=== PATIENT | male | born 1945 | race Caucasian/White ===

== ENCOUNTER 2022-01-31 13:34 | Observation (INO) ==
[2022-01-31] MEDS ORDERED: SODIUM CHLORIDE 0.9% 1,000 ML IV STA (14:07)
[2022-01-31] MEDS ORDERED: ONDANSETRON 4 MG/2 ML VIAL IV STA (14:07)
[2022-01-31 14:32] LABS: Basophils % 0.1 % (0.0-0.8); Hematocrit 49.4 VOL% (42.0-52.0); Hemoglobin 16.2 GM/DL (14.0-18.0); Immature Granulocytes % 0.5 %; Immature Granulocytes Absolute 0.04 #; Lymphocytes # 1.1 10*3/uL (1.4-4.0); Lymphocytes % 12.9 % (21.2-54.2); Mean Corpuscular HGB Conc 32.8 GM/DL (32-36); Mean Corpuscular Volume 91.3 FL (87-102); Mean Platelet Volume 9.4 FL (9.6-12.0); Monocytes # 0.3 10*3/uL (0.11-0.8); Monocytes % 3.6 % (1.7-12.7); Neutrophils % 82.9 % (38.7-73.9); Platelet Count 300 T/CUMM (130-400); Red Blood Count 5.41 MC/CUMM (3.8-5.5); Red Cell Distribution Width 12.7 % (9.3-17.3); White Blood Count 8.7 T/CUMM (4-12)
[2022-01-31 14:48] LABS: Bilirubin,Urine Negative (Negative); Glucose,Urine (UA) Negative (Negative); Ketones,Urine Negative (Negative); Nitrite,Urine Negative (Negative); Protein,Urine Negative (Negative); RBC,Urine 1 /HPF (0-4); Urine Appearance Clear (Clear); Urine Color Yellow (Yellow); Urine Specific Gravity 1.015 (1.001-1.035)
[2022-01-31 14:49] LABS: Blood, Urine Negative (Negative); Urine Urobilinogen 0.2 eU/dL (<2.0)
[2022-01-31 15:06] LABS: Albumin 3.8 G/DL (3.4-5.0); Bilirubin,Total 0.7 MG/DL (0.20-1.00); Calcium 9.4 MG/DL (8.5-10.1); Osmolality,Calculated 269.5 MOS/KG (273-304); Potassium 4.2 MMOL/L (3.5-5.1); Total Protein 7.3 G/DL (6.4-8.2)
[2022-01-31] MEDS ORDERED: ONDANSETRON 4 MG/2 ML VIAL IV PRN (17:08)
[2022-01-31] MEDS ORDERED: hydrALAZINE 20 MG/1 ML VIAL IV PRN (17:08)
[2022-01-31] MEDS ORDERED: ACETAMINOPHEN 325 MG TABLET PO PRN (17:08)
[2022-01-31 19:39] LABS: Barbiturates Screen,Urine Negative (Negative); Benzodiazepines Screen,Urine Negative (Negative); Cannabinoid Screen,Urine Positive (Negative); Opiate Screen,Urine Positive (Negative); Phencyclidine Screen,Urine Negative (Negative)
[2022-01-31] MEDS: SODIUM CHLORIDE 0.9% 1,000 ML IV SCH (20:37)
[2022-01-31] MEDS: LATANOPROST 0.005% OPH SOLN 2.5 ML BOTTLE BOTH EYES SCH (20:37)
[2022-02-01] MEDS: SODIUM CHLORIDE 0.9% 1,000 ML IV SCH ×2 (03:35→13:32)
[2022-02-01 05:12] LABS: Basophils % 0.5 % (0.0-0.8); Eosinophils # 0.1 10*3/uL (0.0-0.87); Eosinophils % 0.6 % (0.00-10.9); Hematocrit 43.7 VOL% (42.0-52.0); Hemoglobin 14.4 GM/DL (14.0-18.0); Immature Granulocytes % 0.3 %; Immature Granulocytes Absolute 0.02 #; Lymphocytes # 2.6 10*3/uL (1.4-4.0); Lymphocytes % 32.7 % (21.2-54.2); Mean Corpuscular Volume 93.6 FL (87-102); Mean Platelet Volume 9.2 FL (9.6-12.0); Monocytes # 0.9 10*3/uL (0.11-0.8); Neutrophils % 54.9 % (38.7-73.9); Platelet Count 227 T/CUMM (130-400); Red Blood Count 4.67 MC/CUMM (3.8-5.5); Red Cell Distribution Width 12.6 % (9.3-17.3); White Blood Count 7.9 T/CUMM (4-12)
[2022-02-01 05:30] LABS: Risk Ratio 2.14; VLDL Cholesterol 15.4 MG/DL
[2022-02-01 08:47] LABS: Calcium 8.5 MG/DL (8.5-10.1); Osmolality,Calculated 277.7 MOS/KG (273-304); Potassium 4.1 MMOL/L (3.5-5.1)
[2022-02-01] MEDS ORDERED: predniSONE 20 MG TABLET PO SCH (09:00)
[2022-02-01] MEDS ORDERED: PANTOPRAZOLE 40 MG TABLET PO SCH (09:00)
[2022-02-01] MEDS: predniSONE 10 MG TABLET PO SCH (10:15)
[2022-02-01] MEDS: AMIODARONE 200 MG TABLET PO SCH (10:15)
[2022-02-01] MEDS: MESALAMINE 800 MG TABLET PO SCH ×3 (10:15→20:31)
[2022-02-01] MEDS: PANTOPRAZOLE 40 MG TABLET PO SCH ×2 (10:15→20:31)
[2022-02-01] MEDS: amLODIPine 10 MG TABLET PO SCH (10:15)
[2022-02-01] MEDS: VALSARTAN 160 MG TABLET PO SCH (10:15)
[2022-02-01] MEDS: ATORVASTATIN 20 MG TABLET PO SCH (10:15)
[2022-02-01] MEDS: TIMOLOL 0.5% OPH SOLN 5 ML BOTTLE BOTH EYES SCH (10:16)
[2022-02-01] MEDS: LATANOPROST 0.005% OPH SOLN 2.5 ML BOTTLE BOTH EYES SCH (20:31)
[2022-02-02] MEDS: SODIUM CHLORIDE 0.9% 1,000 ML IV SCH (01:14)
[2022-02-02] MEDS: MESALAMINE 800 MG TABLET PO SCH (08:35)
[2022-02-02] MEDS: amLODIPine 10 MG TABLET PO SCH (08:35)
[2022-02-02] MEDS: ATORVASTATIN 20 MG TABLET PO SCH (08:35)
[2022-02-02] MEDS: PANTOPRAZOLE 40 MG TABLET PO SCH (08:35)
[2022-02-02] MEDS: VALSARTAN 160 MG TABLET PO SCH (08:35)
[2022-02-02] MEDS: predniSONE 10 MG TABLET PO SCH (08:35)
[2022-02-02] MEDS: TIMOLOL 0.5% OPH SOLN 5 ML BOTTLE BOTH EYES SCH (08:35)
[2022-02-02] MEDS: AMIODARONE 200 MG TABLET PO SCH (08:35)
[2022-02-02 08:44] LABS: Basophils # 0.1 10*3/uL (0.0-0.2); Basophils % 0.6 % (0.0-0.8); Eosinophils # 0.1 10*3/uL (0.0-0.87); Eosinophils % 1.2 % (0.00-10.9); Hematocrit 47.9 VOL% (42.0-52.0); Hemoglobin 15.9 GM/DL (14.0-18.0); Immature Granulocytes % 0.5 %; Immature Granulocytes Absolute 0.04 #; Lymphocytes # 2.6 10*3/uL (1.4-4.0); Lymphocytes % 30.3 % (21.2-54.2); Mean Corpuscular HGB Conc 33.2 GM/DL (32-36); Mean Corpuscular Volume 92.8 FL (87-102); Mean Platelet Volume 9.2 FL (9.6-12.0); Monocytes # 0.7 10*3/uL (0.11-0.8); Monocytes % 8.6 % (1.7-12.7); Neutrophils % 58.8 % (38.7-73.9); Platelet Count 263 T/CUMM (130-400); Red Blood Count 5.16 MC/CUMM (3.8-5.5); Red Cell Distribution Width 12.4 % (9.3-17.3); White Blood Count 8.6 T/CUMM (4-12)
[2022-02-02 12:17] VITALS: BP 163/84
== END 2022-02-02 13:34 | disposition home or self-care (01) ==
LOC: EDUNIT# → EDBD → N.EDINP 13:34 → N.ED 13:34 → SUATTDRO 17:08 → N.5E 18:42
PROVIDERS: ADMIT Internal Medicine; ATTEND Internal Medicine